=== PATIENT | female | born 1965 | race Caucasian/White ===

== ENCOUNTER → 2017-10-20 | Outpatient (CLI) | payer BC ==
[~2017-10-20] MED LIST: CLARITIN10 M3 PO; DEXILANT30 MG PO; LEXAPRO5 MG PO
== END | disposition home or self-care (01) ==
LOC: NUC 06:48
DX: R10.12 Left upper quadrant pain (principal); R14.0 Abdominal distension (gaseous)
CPT/HCPCS: 78264; A9541